=== PATIENT | female | born 1970 ===

== ENCOUNTER 2017-04-26 23:14 | Emergency (ER) | payer BC ==
[2017-04-26 23:14] VITALS: BMI 29.9
[2017-04-26] MEDS ORDERED: Sodium Chloride 0.9% 1,000 ML IV ONE (23:55)
[2017-04-27 00:07] LABS: HCG,QUALITATIVE URINE NEGATIVE (NEGATIVE)
[2017-04-27 00:11] LABS: SQUAMOUS EPITHIAL 1 /hpf (0-5); URINE BACTERIA RARE (<OCC); URINE BILIRUBIN NEGATIVE (NEGATIVE); URINE BLOOD NEGATIVE (NEGATIVE); URINE CLARITY Clear (Clear); URINE COLOR Yellow (YELLOW); URINE GLUCOSE (UA) NORMAL (Normal); URINE LEUKOCYTE ESTERASE NEG Leu/uL (Negative); URINE NITRATE NEGATIVE (NEGATIVE); URINE PROTEIN NEGATIVE (NEGATIVE); URINE UROBILINOGEN NORMAL mg/dL (0.2-1.0)
[2017-04-27] MEDS ORDERED: Sodium Chloride 0.9% 1,000 ML ONE (00:14)
[2017-04-27 00:15] LABS: BASO % 0.5 % (0.0-2.0); EOS % 0.7 % (0.0-4.0); HEMOGLOBIN 12.1 g/dL (11.0-16.0); LYMPH # 2.6 K/uL (1.0-4.3); LYMPH % 37.5 % (20.0-40.0); MEAN CELL VOLUME 86.3 fL (81.0-99.0); MEAN CORPUSCULAR HEMOGLOBIN 29.6 pg (27.0-31.0); MEAN CORPUSCULAR HGB CONC 34.3 g/dL (33.0-37.0); MEAN PLATELET VOLUME 8.7 fL (7.2-11.7); MONO # 0.6 K/uL (0.0-0.8); MONO % 9.1 % (0.0-10.0); NEUT # 3.6 K/uL (1.8-7.0); NEUT % 52.2 % (50.0-75.0); RBC 4.08 Mil/uL (3.80-5.20); RED CELL DISTRIBUTION WIDTH 13.1 % (11.5-14.5)
[2017-04-27 00:27] LABS: ALB/GLOB RATIO 1.6 (1.0-2.1); ALBUMIN 4.4 g/dL (3.5-5.0); ALT/SGPT 44 U/L (9-52); AST/SGOT 31 U/L (14-36); BLOOD UREA NITROGEN 9 mg/dL (7-17); CALCIUM 8.9 mg/dl (8.6-10.4); GFR AFRICAN-AMERICAN > 60; GFR NON-AFRICAN AMERICAN > 60; LIPASE 58 U/L (23-300)
--- NOTE | 2017-04-27 00:55 | C.PDOC ---
History Of Present Illness Patient presents to ED c/o chronic lower abdominal pain that has been present for approx 3-4 months. She describes the pain as a pressure sensation that sometimes radiates to her umbilicus. Patient is s/p hysterectomy and umbilical hernia repair x 2. She has been seen by GI, urology and male model and states she still continues to have discomfort/pain. Patient denies fever, vomiting/ diarrhea, dysuria/hematuria, vaginal bleeding/discharge. Time Seen by Provider: 04/26/17 23:26 Chief Complaint (Nursing): Abdominal Pain History Per: Patient History/Exam Limitations: no limitations Onset/Duration Of Symptoms: Persistent Current Symptoms Are (Timing): Still Present Severity: Mild Location Of Pain/Discomfort: RLQ, LLQ, Suprapubic Radiation Of Pain To:: None Quality Of Discomfort: Pressure, "Pain" Past Medical History Reviewed: Historical Data, Nursing Documentation, Vital Signs Vital Signs: Last Vital Signs Temp 97.9 F 04/27/17 01:01 Pulse 69 04/27/17 01:01 Resp 18 04/27/17 01:01 BP 124/83 04/27/17 01:01 Pulse Ox 97 04/27/17 01:01 - Medical History PMH: Anemia, Asthma, Back Problems (herniated disk), Diabetes (borderline type II), Diverticulitis, Gastritis, Hiatal Hernia, HTN, Hypercholesterolemia, Osteoporosis Surgical History: Appendectomy (1992), Cholecystectomy (1992), Hernia Repair ( hiatal) - [facility] Procedures ESOPHAGOGASTRODUODENOSCOPY [EGD] W/CLOSED BIOPSY (09/21/01) TETANUS TOXOID ADMINIST (07/03/13) Family History: States: No Known Family Hx - Social History Hx Tobacco Use: No Hx Alcohol Use: No Hx Substance Use: No - Immunization History Hx Tetanus Toxoid Vaccination: Yes (07/03/2013) Hx Influenza Vaccination: No Hx Pneumococcal Vaccination: No Review Of Systems Except As Marked, All Systems Reviewed And Found Negative. Constitutional: Negative for: Fever, Chills Cardiovascular: Negative for: Chest Pain, Palpitations Respiratory: Negative for: Cough, Shortness of Breath Gastrointestinal: Positive for: Abdominal Pain. Negative for: Nausea, Vomiting , Diarrhea, Constipation Genitourinary: Negative for: Dysuria, Hematuria, Vaginal Discharge, Vaginal Bleeding Physical Exam - Physical Exam Appears: Well, Non-toxic, No Acute Distress, Other (bizarre affect) Skin: Warm, Dry Oral Mucosa: Moist Cardiovascular: Rhythm Regular Respiratory: Normal Breath Sounds, No Rales, No Rhonchi, No Wheezing Gastrointestinal/Abdominal: Bowel Sounds, Soft, Tenderness (mild RLQ and suprapubic TTP), No Distention, No Guarding, No Rebound Back: Normal Inspection, No CVA Tenderness Neurological/Psych: Oriented x3 ED Course And Treatment - Laboratory Results Result Diagrams: 04/27/17 00:12 04/27/17 00:12 O2 Sat by Pulse Oximetry: 97 (RA) Pulse Ox Interpretation: Normal - CT Scan/US CT ABD/PELVIS Other Rad Studies (CT/US): Read By Radiologist, Radiology Report Reviewed CT/US Interpretation: EXAM: CT Abdomen and Pelvis Without Intravenous Contrast. CLINICAL HISTORY: 46 years old, female; Pain; Abdominal pain; Prior surgery; Surgery type: Umbilical repair twice;. Patient HX: 03-11-16 images and report sent; Additional info: Rlq/right pelvic pain. TECHNIQUE: Axial computed tomography images of the abdomen and pelvis without intravenous contrast. All CT. scans at this facility use one or more dose reduction techniques, viz.: automated exposure control;. ma/kV adjustment per patient size (including targeted exams where dose is matched to indication; i.e. head) ; or iterative reconstruction technique. Coronal and sagittal reformatted images were created and reviewed. COMPARISON: CT - ABD PELVIS W/O PO OR IV CONT 2016-03-11 09:25. FINDINGS: Limitations: Lack of intravenous contrast. Lower thorax: No acute findings. ABDOMEN: Liver: Unremarkable. Gallbladder and bile ducts: Cholecystectomy. No significant ductal dilation. Pancreas: Unremarkable. No ductal dilation. Spleen: Too small to characterize lesion, stable. No splenomegaly. Adrenals: No mass. Kidneys and ureters: No renal calculi. No hydronephrosis. [facility]. [employer] [facility]. Final Radiology Report [id number]. Name: WOLFGANG VINSON Age: 46Years F Date: 2017. SSN: [id number] : 1970. Study: CT ABDOMEN/PELVIS WO Requesting Physician: VIVIENNE LIANG. Images: 608. Addl Studies: Provided Clinical History: rlq/right pelvic pain. CONFIDENTIALITY STATEMENT. This transmission is confidential and is intended to be a privileged communication. It is intended only for the use of the addressee. Access to this. message by anyone else is unauthorized. If you are not the intended recipient, any disclosure, copying, distribution or any action taken, or omitted to. be taken in reliance on it is prohibited and may be unlawful. If you received this communication in error, please notify us by telephone, so that return. of this document to us can be arranged. Page 2 of 2. Stomach and bowel: Few scattered diverticula within colon. No associated inflammatory stranding. No definite mural thickening. No obstruction. Appendix : Appendectomy. PELVIS: Bladder: Unremarkable. No stones. Reproductive: Hysterectomy. ABDOMEN and PELVIS: Intraperitoneal space: No significant fluid collection. No free air. Bones/joints: Probable bone islands. Facet osteoarthrosis within lower lumbar spine. No acute. fracture. Soft tissues: Unremarkable. Vasculature: Unremarkable. No aneurysm. Lymph nodes: No pathologically enlarged lymph nodes. IMPRESSION: 1. Diverticulosis without definite CT evidence of diverticulitis. 2. Incidental/non-acute findings are described above. Thank you for allowing us to participate in the care of your patient. Dictated and Authenticated by: Dane Hill MD. 04/27/2017 12:59 AM Eastern Time ([place] & [place]) Progress Note: Blood work, UA, CT abd/pelvis ordered and reviewed. Patient given IV NS bolus, IV toradol. Reevaluation Time: 01:20 Reassessment Condition: Improved (On reassessment, patient is resting comfortably, in no pain/distress. On exam, abdomen is soft and nontender. CT scan, blood work and UA unremarkable. Suspect symptoms are due to adhesions caused by multiple surgeries vs malingering/anxiety/psychiatric illness. Patient instructed to follow up with her general surgeon within 1 week for further evaluation. She understands she should return to ED if symptoms worsen. ) Disposition Counseled Patient/Family Regarding: Studies Performed, Diagnosis, Need For Followup - Disposition Referrals: [facility] at [facility] [Outside] Disposition: HOME/ ROUTINE Disposition Time: 01:20 Condition: STABLE Additional Instructions: FOLLOW UP WITH YOUR GI SPECIALIST AND CLAIMS ADJUSTER WITHIN 1 WEEK RETURN TO ER IF SYMPTOMS WORSEN Instructions: Abdominal Pain (ED) Forms: [facility] (Chinese) Print Language: MONEGASQUE - POA Present On Arrival: None - Clinical Impression Clinical Impression: Chronic abdominal pain
--- NOTE | 2017-04-27 01:00 | CT ---
EXAM: CT Abdomen and Pelvis Without Intravenous Contrast CLINICAL HISTORY: 46 years old, female; Pain; Abdominal pain; Prior surgery; Surgery type: Umbilical repair twice; Patient HX: 03-11-16 images and report sent; Additional info: Rlq/right pelvic pain TECHNIQUE: Axial computed tomography images of the abdomen and pelvis without intravenous contrast. All CT scans at this facility use one or more dose reduction techniques, viz.: automated exposure control; ma/kV adjustment per patient size (including targeted exams where dose is matched to indication; i.e. head); or iterative reconstruction technique. Coronal and sagittal reformatted images were created and reviewed. COMPARISON: CT - ABD PELVIS W/O PO OR IV CONT 2016-03-11 09:25 FINDINGS: Limitations: Lack of intravenous contrast. Lower thorax: No acute findings. ABDOMEN: Liver: Unremarkable. Gallbladder and bile ducts: Cholecystectomy. No significant ductal dilation. Pancreas: Unremarkable. No ductal dilation. Spleen: Too small to characterize lesion, stable. No splenomegaly. Adrenals: No mass. Kidneys and ureters: No renal calculi. No hydronephrosis. Stomach and bowel: Few scattered diverticula within colon. No associated inflammatory stranding. No definite mural thickening. No obstruction. Appendix: Appendectomy. PELVIS: Bladder: Unremarkable. No stones. Reproductive: Hysterectomy. ABDOMEN and PELVIS: Intraperitoneal space: No significant fluid collection. No free air. Bones/joints: Probable bone islands. Facet osteoarthrosis within lower lumbar spine. No acute fracture. Soft tissues: Unremarkable. Vasculature: Unremarkable. No aneurysm. Lymph nodes: No pathologically enlarged lymph nodes. IMPRESSION: 1. Diverticulosis without definite CT evidence of diverticulitis. 2. Incidental/non-acute findings are described above.
[2017-04-27 01:01] VITALS: BP 124/83; PULSE 69; RESP 18; TEMP 97.9; O2SAT 97
== END 2017-04-27 01:34 | disposition home or self-care (01) ==
LOC: C.ER 23:14
DX: G89.29 Other chronic pain (principal); R10.31 Right lower quadrant pain
CPT/HCPCS: 74176; 80053; 81001; 83690; 84703; 85025; 96361; 96374; 99284; J1885; J7040

== ENCOUNTER 2017-10-06 16:23 | Emergency (ER) | payer BC ==
[2017-10-06 16:24] VITALS: BMI 24.6
[2017-10-06 16:40] VITALS: O2SAT 98
--- NOTE | 2017-10-06 17:13 | C.PDOC ---
History Of Present Illness 46 year old female with a Hx of chronic abdominal pain presents to the ER with a complaint of sharp/stabbing abdominal pain for the past several days. Patient also has a Hx of chronic UTIs and notes her urine has been foul smelling and cloudy. Patient reports she had an endoscopy yesterday at [place], however, patient is still having pain which prompted visit. Denies nausea, vomiting, or diarrhea. Chief Complaint (Nursing): Abdominal Pain History Per: Patient History/Exam Limitations: no limitations Onset/Duration Of Symptoms: Days Current Symptoms Are (Timing): Still Present Location Of Pain/Discomfort: RLQ, LLQ Radiation Of Pain To:: None Quality Of Discomfort: Sharp, Stabbing Associated Symptoms: denies: Fever, Chills, Nausea, Vomiting, Diarrhea Exacerbating Factors: None Alleviating Factors: None Recent travel outside of the [place]: No Abnormal Vaginal Bleeding: No Past Medical History Reviewed: Historical Data, Nursing Documentation, Vital Signs Vital Signs: Last Vital Signs Temp 99.4 F 10/06/17 16:36 Pulse 88 10/06/17 16:36 Resp 16 10/06/17 16:36 BP 149/93 H 10/06/17 16:36 Pulse Ox 98 10/06/17 17:38 - Medical History PMH: Anemia (past), Asthma, Back Problems (herniated disk), Diabetes ( borderline type II), Diverticulitis, Gastritis, Hiatal Hernia, HTN, Hypercholesterolemia, Kidney Stones, Osteoporosis, Chronic Kidney Disease Surgical History: Appendectomy (1992), Cholecystectomy (1992), Hernia Repair ( hiatal) - [facility] Procedures ESOPHAGOGASTRODUODENOSCOPY [EGD] W/CLOSED BIOPSY (09/21/01) TETANUS TOXOID ADMINIST (07/03/13) Family History: States: Unknown Family Hx - Social History Hx Tobacco Use: No Hx Alcohol Use: No Hx Substance Use: No - Immunization History Hx Tetanus Toxoid Vaccination: Yes (07/03/2013) Hx Influenza Vaccination: No Hx Pneumococcal Vaccination: No Review Of Systems Constitutional: Negative for: Fever, Chills Cardiovascular: Negative for: Chest Pain, Palpitations Respiratory: Negative for: Cough, Shortness of Breath Gastrointestinal: Positive for: Abdominal Pain. Negative for: Nausea, Vomiting Genitourinary: Positive for: Other (Cloudy and foul smelling urine) Physical Exam - Physical Exam Appears: Non-toxic, No Acute Distress Skin: Normal Color, Warm, Dry Head: Atraumatic, Normacephalic Eye(s): bilateral: Normal Inspection Oral Mucosa: Moist Neck: Normal, Supple Chest: Symmetrical, No Tenderness Cardiovascular: Rhythm Regular Respiratory: Normal Breath Sounds, No Rales, No Rhonchi, No Wheezing Gastrointestinal/Abdominal: Soft, No Tenderness Back: No CVA Tenderness Extremity: Normal ROM (x4) Neurological/Psych: Oriented x3, Normal Speech Gait: Steady ED Course And Treatment - Laboratory Results Result Diagrams: 10/06/17 17:40 10/06/17 17:40 O2 Sat by Pulse Oximetry: 98 (Room air) Pulse Ox Interpretation: Normal Medical Decision Making Medical Decision Making: CT abd/pel, blood work, CXR, and urinalysis ordered. IV fluids, toradol, and tylenol administered. Disposition - Disposition Referrals: Nidia Guzman MD [Staff Provider] - Disposition: HOME/ ROUTINE Disposition Time: 18:41 Condition: STABLE Additional Instructions: Follow up with the medical doctor within 1-2 days. Return if worsened. Prescriptions: Nitrofurantoin Macrocrystals [Macrobid] 1 cap PO BID #14 cap Instructions: Urinary Tract Infections in Adults Forms: [facility] (Bermudian) - Clinical Impression Clinical Impression: UTI (urinary tract infection) - PA / CONSTRUCTION SPECIALIST / Resident Statement MD/DO has reviewed & agrees with the documentation as recorded. - Scribe Statement The provider has reviewed the documentation as recorded by the Scribe Nolan Hutson All medical record entries made by the Scribe were at my direction and personally dictated by me. I have reviewed the chart and agree that the record accurately reflects my personal performance of the history, physical exam, medical decision making, and the department course for this patient. I have also personally directed, reviewed, and agree with the discharge instructions and disposition.
[2017-10-06] MEDS ORDERED: Sodium Chloride 0.9% 500 ML IV ONE ×2 (17:23→18:27)
[2017-10-06 17:45] LABS: HCG,QUALITATIVE URINE NEGATIVE (NEGATIVE)
[2017-10-06 17:46] LABS: SQUAMOUS EPITHIAL 22 /hpf (0-5); URINE BILIRUBIN NEGATIVE (NEGATIVE); URINE BLOOD NEGATIVE (NEGATIVE); URINE CLARITY Hazy (Clear); URINE COLOR Yellow (YELLOW); URINE GLUCOSE (UA) NORMAL (Normal); URINE LEUKOCYTE ESTERASE 3+ Leu/uL (Negative); URINE PROTEIN NEGATIVE (NEGATIVE); URINE UROBILINOGEN NORMAL mg/dL (0.2-1.0)
[2017-10-06 17:47] LABS: BASO % 0.7 % (0.0-2.0); EOS # 0.1 K/uL (0.0-0.7); EOS % 2.4 % (0.0-4.0); HEMOGLOBIN 12.7 g/dL (11.0-16.0); LYMPH # 2.1 K/uL (1.0-4.3); LYMPH % 35.7 % (20.0-40.0); MEAN CELL VOLUME 85.8 fL (81.0-99.0); MEAN CORPUSCULAR HEMOGLOBIN 29.1 pg (27.0-31.0); MEAN CORPUSCULAR HGB CONC 33.9 g/dL (33.0-37.0); MEAN PLATELET VOLUME 8.5 fL (7.2-11.7); MONO # 0.4 K/uL (0.0-0.8); MONO % 7.8 % (0.0-10.0); NEUT # 3.1 K/uL (1.8-7.0); NEUT % 53.4 % (50.0-75.0); NRBC % 0.1 % (0.0-2.0); RBC 4.37 Mil/uL (3.80-5.20); RED CELL DISTRIBUTION WIDTH 12.5 % (11.5-14.5); WHITE BLOOD COUNT 5.8 K/uL (4.8-10.8)
--- NOTE | 2017-10-06 17:51 | RAD ---
PROCEDURE: CHEST RADIOGRAPH, 1 VIEW HISTORY: abd pain COMPARISON: Chest radiograph dated 05/01/2015. FINDINGS: LUNGS: Clear. PLEURA: No pneumothorax or pleural fluid seen. CARDIOVASCULAR: Normal. OSSEOUS STRUCTURES: Unchanged. VISUALIZED UPPER ABDOMEN: Normal. OTHER FINDINGS: None. IMPRESSION: No active disease.
[2017-10-06 17:55] LABS: ALB/GLOB RATIO 1.8 (1.0-2.1); ALBUMIN 4.6 g/dL (3.5-5.0); ALT/SGPT 48 U/L (9-52); AST/SGOT 31 U/L (14-36); BLOOD UREA NITROGEN 11 mg/dL (7-17); CALCIUM 8.4 mg/dl (8.6-10.4); GFR AFRICAN-AMERICAN > 60; GFR NON-AFRICAN AMERICAN > 60; LIPASE 98 U/L (23-300)
[2017-10-06] MEDS ORDERED: Sodium Chloride 0.9% 0 ML ONE (18:18)
--- NOTE | 2017-10-06 18:20 | CT ---
PROCEDURE: CT Abdomen and Pelvis without intravenous contrast HISTORY: lower abd pain hx of diverticulitis COMPARISON: CT scan of the abdomen pelvis dated 04/27/2017. TECHNIQUE: Contiguous images were obtained from the domes of the diaphragms to the upper thighs without the administration of intravenous contrast. Oral contrast was not administered. Radiation dose: Total exam DLP = for 34 mGy-cm. This CT exam was performed using one or more of the following dose reduction techniques: Automated exposure control, adjustment of the mA and/or kV according to patient size, and/or use of iterative reconstruction technique. FINDINGS: LOWER THORAX: Unremarkable. LIVER: Unremarkable. No gross lesion or ductal dilatation. GALLBLADDER AND BILE DUCTS: Prior cholecystectomy with surgical clips in place. PANCREAS: Unremarkable. No gross lesion or ductal dilatation. SPLEEN: Unremarkable. ADRENALS: Unremarkable. No mass. KIDNEYS AND URETERS: Unremarkable. No hydronephrosis. No solid mass. VASCULATURE: Unremarkable. No aortic aneurysm. BOWEL: Colonic diverticulosis. No obstruction. No gross mural thickening. APPENDIX: Prior appendectomy. PERITONEUM: Unremarkable. No free fluid. No free air. LYMPH NODES: Unremarkable. No enlarged lymph nodes. BLADDER: Unremarkable. REPRODUCTIVE: Prior hysterectomy. BONES: No acute fracture. OTHER FINDINGS: None. IMPRESSION: No acute abdominal pelvic pathology. Stable findings as above.
[2017-10-06 19:41] VITALS: BP 154/106; PULSE 80; RESP 18; TEMP 98.4
== END 2017-10-06 19:38 | disposition home or self-care (01) ==
LOC: C.ER 16:23
DX: N39.0 Urinary tract infection, site not specified (principal)
CPT/HCPCS: 71045; 74176; 80053; 81001; 83690; 84703; 85025; 87086; 99285; J7040

== ENCOUNTER 2018-04-10 15:05 | Emergency (ER) | payer BC ==
[2018-04-10 15:05] VITALS: BMI 24.6
[2018-04-10 15:30] VITALS: BP 116/79; PULSE 85; RESP 20; TEMP 97.9; O2SAT 99
--- NOTE | 2018-04-10 16:02 | C.PDOC ---
History Of Present Illness 47 y/o female pt with multiple medical problems presents to the ER c/o right foot pain for x5 days. Pt reports she takes motrin daily with no relief. Pt denies numbness and tingling sensation. Pt also c/o more than 1 year of intermittent b/l posterior leg cramps. Pt's PMD is Dr. Carol Diaz and claims she has not been able to be in touch with her. Time Seen by Provider: 04/10/18 15:30 Chief Complaint (Nursing): Lower Extremity Problem/Injury History Per: Patient History/Exam Limitations: no limitations Onset/Duration Of Symptoms: Days (x5) Current Symptoms Are (Timing): Still Present Past Medical History Reviewed: Historical Data, Nursing Documentation, Vital Signs Vital Signs: Last Vital Signs Temp 97.9 F 04/10/18 15:17 Pulse 85 04/10/18 15:17 Resp 20 04/10/18 15:17 BP 116/79 04/10/18 15:17 Pulse Ox 99 04/10/18 15:17 - Medical History PMH: Anemia (past), Asthma, Back Problems (herniated disk), Diabetes (borderline type II), Diverticulitis, Gastritis, Hiatal Hernia, HTN, Hypercholesterolemia, Kidney Stones, Osteoporosis, Chronic Kidney Disease Surgical History: Appendectomy (1992), Cholecystectomy (1992), Hernia Repair (hiatal) - [facility] Procedures ESOPHAGOGASTRODUODENOSCOPY [EGD] W/CLOSED BIOPSY (09/21/01) TETANUS TOXOID ADMINIST (07/03/13) Family History: States: Unknown Family Hx - Social History Hx Tobacco Use: No Hx Alcohol Use: No Hx Substance Use: No - Immunization History Hx Tetanus Toxoid Vaccination: No Hx Influenza Vaccination: No Hx Pneumococcal Vaccination: No Review Of Systems Musculoskeletal: Positive for: Leg Pain (1 year of intermittent b/l posterior leg cramps ), Foot Pain (right foot pain) Neurological: Negative for: Weakness, Other (tingling sensation) Physical Exam - Physical Exam Appears: Non-toxic, No Acute Distress Skin: Warm, Dry Extremity: Tenderness (to right proximal 3rd an 4th metatarsal ), No Pedal Edema, No Calf Tenderness, Capillary Refill (<2 sec), No Deformity, No Swelling, No Other (non tenderness of the ankle ) Pulses: Right Dorsalis Pedis: Normal Neurological/Psych: Oriented x3, Normal Speech, Normal Motor, Normal Sensation ED Course And Treatment - Laboratory Results Urine POC: Negative O2 Sat by Pulse Oximetry: 99 (RA) Pulse Ox Interpretation: Normal - Other Rad right foot X-Ray: Viewed By Me, Read By Radiologist Interpretation: IMPRESSION: No acute displaced fracture, dislocation, or significant joint effusion identified. If symptoms persist, or if there is continued clinical concern, x-ray follow-up in 7-10 days should be considered. Medical Decision Making Medical Decision Making: Plans: -- Toradol -- POC urine -- Right foot XR 1646 no fx on xray. will feli wrap, ortho shoe and refer to podiatry Disposition Counseled Patient/Family Regarding: Studies Performed, Diagnosis, Need For Followup, Rx Given - Disposition Referrals: [facility] at [facility] [Outside] Podiatry Clinic [Outside] Disposition: HOME/ ROUTINE Disposition Time: 16:48 Condition: GOOD Additional Instructions: Wear feli bandage and orthopedic shoe for comfort while awake. Tale ibuprofen for pain. Follow up with podiatry clinic. Call for appointment. Prescriptions: Ibuprofen [Motrin] 600 mg PO TID #30 tab Instructions: Metatarsalgia (DC), Foot Sprain (DC) Forms: [facility] (Equ[place]an), General Discharge Instructions - Clinical Impression Clinical Impression: Foot pain, right - PA / RESPIRATORY MANAGER / Resident Statement MD/DO has reviewed & agrees with the documentation as recorded. - Scribe Statement The provider has reviewed the documentation as recorded by the Scribfan Hernandez Do All medical record entries made by the Scribe were at my direction and personally dictated by me. I have reviewed the chart and agree that the record accurately reflects my personal performance of the history, physical exam, medical decision making, and the department course for this patient. I have also personally directed, reviewed, and agree with the discharge instructions and disposition.
--- NOTE | 2018-04-10 16:45 | RAD ---
PROCEDURE: Right foot Radiographs. HISTORY: pain ti 3,4,5 metatarsal COMPARISON: None available. FINDINGS: BONES: No acute displaced fracture. Calcaneal enthesophyte/heel spur. JOINTS: No dislocation. SOFT TISSUES: Unremarkable. No evidence of radiopaque foreign body. OTHER FINDINGS: None. IMPRESSION: No acute displaced fracture, dislocation, or significant joint effusion identified. If symptoms persist, or if there is continued clinical concern, x-ray follow-up in 7-10 days should be considered.
== END 2018-04-10 17:05 | disposition home or self-care (01) ==
LOC: C.ER 15:05
DX: M79.671 Pain in right foot (principal)
CPT/HCPCS: 73630; 96372; 99284; J1885